=== PATIENT | male | born 1970 ===

== ENCOUNTER 2016-05-16 09:36 | Emergency (ER) | payer SELFPAY ==
[2016-05-16 09:54] VITALS: BP 128/81; PULSE 85; RESP 18; TEMP 97.9; O2SAT 99
--- NOTE | 2016-05-16 09:58 | C.PDOC ---
History Of Present Illness 45 yr old male presents to the ER stating yesterday he was cleaning his ears when he felt sudden pain. Patient reports of slight decrease in hearing. Patient denies discharge from the ear, fever, nausea, vomiting, weakness or numbness. Time Seen by Provider: 05/16/16 09:54 Chief Complaint (Nursing): ENT Problem History Per: Patient History/Exam Limitations: None Onset/Duration Of Symptoms: Days (1) Current Symptoms Are (Timing): Still Present Quality (Ear): denies: Discharge Past Medical History Reviewed: Historical Data, Nursing Documentation, Vital Signs Vital Signs: Last Vital Signs Temp 97.9 F 05/16/16 09:50 Pulse 85 05/16/16 09:50 Resp 18 05/16/16 09:50 BP 128/81 05/16/16 09:50 Pulse Ox 99 05/16/16 09:58 Family History: States: No Known Family Hx - Social History Hx Alcohol Use: No Hx Substance Use: No - Immunization History Hx Tetanus Toxoid Vaccination: No Hx Influenza Vaccination: No Hx Pneumococcal Vaccination: No Review Of Systems Except As Marked, All Systems Reviewed And Found Negative. Constitutional: Negative for: Fever ENT: Positive for: Ear Pain (bilateral ). Negative for: Ear Discharge Gastrointestinal: Negative for: Nausea, Vomiting Neurological: Negative for: Weakness, Numbness Physical Exam - Physical Exam Appears: Non-toxic, No Acute Distress Skin: Warm, Dry Head: Atraumatic, Normacephalic Ear(s): Bilateral: Other (Deep cerumen impaction. ) Throat: Normal, No Erythema, No Exudate Chest: Symmetrical, No Tenderness Cardiovascular: Rhythm Regular, No Murmur Extremity: Normal ROM, No Swelling Neurological/Psych: Oriented x3, Normal Speech, Normal Motor ED Course And Treatment O2 Sat by Pulse Oximetry: 99 Disposition Counseled Patient/Family Regarding: Diagnosis, Need For Followup, Rx Given - Disposition Referrals: [facility] [Outside] [facility] [Outside] Disposition: HOME/ ROUTINE Disposition Time: 09:56 Condition: GOOD Prescriptions: ACETIC ACID 2% Otic Soln 5 drop AU TID #1 shama Instructions: Cerumen Impaction (ED) - Clinical Impression Clinical Impression: Cerumen impaction - Scribe Statement The provider has reviewed the documentation as recorded by the Niharikaibe Kandace Jean Provider Attestation: All medical record entries made by the Scribe were at my direction and personally dictated by me. I have reviewed the chart and agree that the record accurately reflects my personal performance of the history, physical exam, medical decision making, and the department course for this patient. I have also personally directed, reviewed, and agree with the discharge instructions and disposition.
== END 2016-05-16 09:56 | disposition home or self-care (01) ==
LOC: C.ER 09:36
DX: H61.23 Impacted cerumen, bilateral (principal)